=== PATIENT | female | born 1970 | race Caucasian/White ===

== ENCOUNTER 2017-10-03 15:36 | Emergency (ER) | payer OTHER ==
[~2017-10-03] VITALS: Ht 165.1 cm; Wt 81.6 kg
== END 2017-10-03 18:45 | disposition home or self-care (01) ==
LOC: ER 15:36
DX: S13.4XXA Sprain of ligaments of cervical spine, initial encounter (principal); M62.830 Muscle spasm of back; V49.9XXA Car occupant (driver) (passenger) injured in unspecified traffic accident, initial encounter; Y93.89 Activity, other specified; Y92.488 Other paved roadways as the place of occurrence of the external cause; Y99.8 Other external cause status

== ENCOUNTER 2017-10-15 15:10 | Emergency (ER) | payer OTHER ==
[~2017-10-15] VITALS: Ht 165.1 cm; Wt 81.6 kg
== END 2017-10-15 20:20 | disposition home or self-care (01) ==
LOC: ER 15:10
DX: R05 Cough (principal); J10.1 Influenza due to other identified influenza virus with other respiratory manifestations

== ENCOUNTER 2017-11-03 13:10 | Emergency (ER) | payer OTHER ==
[~2017-11-03] VITALS: Ht 165.1 cm; Wt 81.6 kg
== END 2017-11-03 21:45 | disposition home or self-care (01) ==
LOC: ER 13:10
DX: K80.20 Calculus of gallbladder without cholecystitis without obstruction (principal); N20.0 Calculus of kidney

== ENCOUNTER 2018-03-17 16:20 | Emergency (ER) | payer OTHER ==
[~2018-03-17] VITALS: Ht 165.1 cm; Wt 79.8 kg
== END 2018-03-17 20:20 | disposition home or self-care (01) ==
LOC: ER 16:20
DX: M62.838 Other muscle spasm (principal)

== ENCOUNTER 2018-10-10 16:37 | Emergency (ER) | payer OTHER ==
[~2018-10-10] VITALS: Ht 165.1 cm; Wt 81.6 kg
== END 2018-10-10 21:09 | disposition home or self-care (01) ==
LOC: ER 16:37
DX: M25.552 Pain in left hip (principal)

== ENCOUNTER 2020-12-11 09:13 | Emergency (ER) | payer OTHER ==
[~2020-12-11] VITALS: Ht 165.1 cm; Wt 86.2 kg
== END 2020-12-11 18:01 | disposition home or self-care (01) ==
LOC: ER 09:13
DX: N20.1 Calculus of ureter (principal); N20.0 Calculus of kidney; R10.31 Right lower quadrant pain